=== PATIENT | female | born 1945 | race Caucasian/White ===

== ENCOUNTER 2022-07-22 13:04 | Emergency (ER) | payer MEDICARE ==
[~2022-07-22] VITALS: Ht 162.6 cm; Wt 51.3 kg
--- NOTE | 2022-07-22 21:54 | EKG ---
[facility] [address] [facility] [place] [address] Signed Atrial fibrillation with rapid ventricular response Nonspecific ST abnormality Abnormal ECG No previous ECGs available Confirmed by Rachel Barrios MD () on 07/22/2022 9:54:49 PM Electronically Signed By: RACHEL BARRIOS MD 07/22/22 2154 PATIENT NAME: MARIA ESTHER GRANADOS Electrocardiogram DATE OF : 43 PHYSICIAN: RACHEL BARRIOS MD REPORT #: [id number] REPORT IS CONFIDENTIAL AND NOT TO BE RELEASED WITHOUT AUTHORIZATION
== END 2022-07-22 16:11 | disposition home or self-care (01) ==
LOC: ED 13:04
DX: I48.91 Unspecified atrial fibrillation (principal)
CPT/HCPCS: 36415; 80053; 83735; 84484; 85025; 93005; 93010; 96374; 99284-25; J7040